=== PATIENT | female | born 1940 | race Caucasian/White ===

== ENCOUNTER 2017-12-01 16:59 | Inpatient (IN) | payer MEDICARE, OTHER, SELFPAY ==
[~2017-12-01] VITALS: Ht 170.2 cm; Wt 76.1 kg
[2017-12-01] MEDS ORDERED: GABA-827 PO (17:33)
[2017-12-01] MEDS ORDERED: PROP10TA PO (17:33)
[2017-12-01] MEDS ORDERED: ROPI0.254 PO (17:33)
[2017-12-01] MEDS ORDERED: METF500T17 PO (17:33)
[2017-12-01] MEDS ORDERED: POTA99TA24 PO (17:33)
[2017-12-01] MEDS ORDERED: FURO20TA3 PO (17:33)
[2017-12-01] MEDS ORDERED: MONT4GRA2 PO (17:33)
[2017-12-01] MEDS ORDERED: OMEP10CA4 PO (17:33)
[2017-12-01] MEDS ORDERED: LISI2.5T PO (17:33)
[2017-12-01] MEDS ORDERED: SIMV5TAB5 PO (17:33)
[2017-12-01] MEDS ORDERED: SODIUM CHLORIDE FLUSH 10ML SYR IVF ONE (18:00)
[2017-12-01 18:24] LABS: BASOPHILS # (AUTO) 0.04 x10^3/uL (0-0.1); BASOPHILS % (AUTO) 1 % (0-1); EOSINOPHILS % (AUTO) 3 % (1-7); LYMPHOCYTES # (AUTO) 1.59 x10^3/uL (1-3.4); LYMPHOCYTES % (AUTO) 20 % (22-44); MD NO; MEAN CORPUSCULAR HEMOGLOBIN 26.3 pg (27.0-34.8); MEAN CORPUSCULAR HGB CONC 32.6 g/dL (32.4-35.8); MEAN CORPUSCULAR VOLUME 80.5 fL (80-100); MEAN PLATELET VOLUME 9.3 fL (7.4-10.4); MONOCYTES # (AUTO) 0.51 x10^3/uL (0.2-0.8); MONOCYTES % (AUTO) 7 % (2-9); NEUTROPHILS # (AUTO) 5.57 x10^3/uL (1.8-6.8); NEUTROPHILS % (AUTO) 70 % (42-75); PLATELET COUNT 216 x10^3/uL (130-400); RED BLOOD COUNT 3.73 x10^6/uL (3.82-5.3); RED CELL DISTRIBUTION WIDTH 15.9 % (9.6-15.2)
[2017-12-01 18:32] LABS: ALBUMIN 3.2 g/dL (3.4-5.0); ANION GAP 7 mmol/L (5-15); CALCIUM 8.8 mg/dL (8.5-10.1); CHLORIDE 103 mmol/L (98-107)
[2017-12-01 18:34] LABS: ALANINE AMINOTRANSFERASE 16 U/L (12-78); CREATININE 0.77 mg/dL (0.55-1.02)
[2017-12-01 18:35] LABS: SALICYLATE LEVEL < 1.7 mg/dL (2.8-20.0)
[2017-12-01 18:39] LABS: ALKALINE PHOSPHATASE 154 U/L (45-117); BILIRUBIN,TOTAL 0.1 mg/dL (0.2-1.0); TOTAL PROTEIN 7.2 g/dL (6.4-8.2); TROPONIN I < 0.015 ng/mL (0.000-0.045)
[2017-12-01 18:40] LABS: ACETAMINOPHEN < 2 mcg/mL (10-30)
[2017-12-01 18:59] LABS: MICROSCOPIC AUTO
[2017-12-01 19:00] LABS: CULTURE INDICATED? YES
[2017-12-01 19:09] LABS: AMPHETAMINE SCREEN, URINE Negative (Negative); BARBITURATE SCREEN, URINE Negative (Negative); BENZODIAZEPINE SCREEN, URINE Negative (Negative); CANNABINOID SCREEN, URINE Negative (Negative); COCAINE SCREEN, URINE Negative (Negative); METHADONE SCREEN, URINE Negative (Negative); OPIATE SCREEN, URINE Negative (Negative)
[2017-12-01] MEDS ORDERED: SODIUM CHLORIDE FLUSH 10ML SYR IVF PRN (20:00)
[2017-12-01 20:34] VITALS: BP 139/81
[2017-12-01 20:35] VITALS: BP 139/81
[2017-12-01] MEDS ORDERED: ASPIRIN 81 MG TABLET CHEW PO ONE (21:30)
[2017-12-01] MEDS ORDERED: BISACODYL 10 MG SUPP PR PRN (21:30)
[2017-12-01] MEDS ORDERED: ACETAMINOPHEN 325 MG TABLET PO PRN (21:30)
[2017-12-01] MEDS ORDERED: POLYETHYLENE GLYCOL 17 GM PACKET PO PRN (21:30)
[2017-12-01] MEDS: SODIUM CHLORIDE FLUSH 10ML SYR IVF SCH (22:26)
[2017-12-01] MEDS: HEPARIN 5,000 UNITS/ML, 1ML SQ SCH (22:26)
[2017-12-01 22:27] LABS: FOLATE LEVEL 7.7 ng/mL (3.1-17.5)
[2017-12-01] MEDS ORDERED: ALBUTEROL SULFATE 2.5 MG/3 ML NPPB PRN (23:00)
[2017-12-01] MEDS: ALBUTEROL SULFATE 2.5 MG/3 ML NPPB SCH (23:08)
[2017-12-02 00:04] VITALS: BP 131/74
[2017-12-02] MEDS ORDERED: MAGNESIUM SULFATE PMX 2GM/50ML 50 ML IV ONE (01:00)
[2017-12-02 04:22] LABS: BASOPHILS # (AUTO) 0.03 x10^3/uL (0-0.1); BASOPHILS % (AUTO) 1 % (0-1); EOSINOPHILS # (AUTO) 0.21 x10^3/uL (0-0.4); EOSINOPHILS % (AUTO) 3 % (1-7); LYMPHOCYTES # (AUTO) 1.53 x10^3/uL (1-3.4); LYMPHOCYTES % (AUTO) 24 % (22-44); MD NO; MEAN CORPUSCULAR HEMOGLOBIN 26.2 pg (27.0-34.8); MEAN CORPUSCULAR HGB CONC 32.8 g/dL (32.4-35.8); MEAN CORPUSCULAR VOLUME 79.9 fL (80-100); MEAN PLATELET VOLUME 9.4 fL (7.4-10.4); MONOCYTES # (AUTO) 0.46 x10^3/uL (0.2-0.8); MONOCYTES % (AUTO) 7 % (2-9); NEUTROPHILS # (AUTO) 4.27 x10^3/uL (1.8-6.8); NEUTROPHILS % (AUTO) 66 % (42-75); PLATELET COUNT 186 x10^3/uL (130-400); RED CELL DISTRIBUTION WIDTH 15.6 % (9.6-15.2)
[2017-12-02 04:30] LABS: ALANINE AMINOTRANSFERASE 15 U/L (12-78); ALBUMIN 2.9 g/dL (3.4-5.0); ANION GAP 5 mmol/L (5-15); CHLORIDE 104 mmol/L (98-107); CREATININE 0.77 mg/dL (0.55-1.02)
[2017-12-02 04:32] LABS: ALKALINE PHOSPHATASE 115 U/L (45-117); BILIRUBIN,TOTAL 0.2 mg/dL (0.2-1.0); TOTAL PROTEIN 6.6 g/dL (6.4-8.2)
[2017-12-02] MEDS: HEPARIN 5,000 UNITS/ML, 1ML SQ SCH ×3 (06:17→20:50)
[2017-12-02 07:31] VITALS: BP 141/69
[2017-12-02] MEDS: SENNA/DOCUSATE TABLET PO SCH (08:55)
[2017-12-02] MEDS: SODIUM CHLORIDE FLUSH 10ML SYR IVF SCH ×2 (08:55→20:49)
[2017-12-02] MEDS: ALBUTEROL SULFATE 2.5 MG/3 ML NPPB SCH ×2 (11:10→18:29)
[2017-12-02] MEDS ORDERED: GABA300C10 PO (11:27)
[2017-12-02] MEDS ORDERED: RIVA1.5C4 PO (11:27)
[2017-12-02] MEDS ORDERED: ROPI1TAB2 PO (11:27)
[2017-12-02] MEDS ORDERED: MONT10TA9 PO (11:27)
[2017-12-02] MEDS ORDERED: LISI-170 PO (11:27)
[2017-12-02] MEDS ORDERED: POTA10TA11 PO (11:27)
[2017-12-02] MEDS: ONDANSETRON ODT 4 MG PO PRN ×2 (11:36→16:08)
[2017-12-02 14:00] VITALS: BP 151/62
[2017-12-02 14:38] LABS: HEMOGLOBIN A1C 6.1 % (4.2-6.3)
[2017-12-02] MEDS ORDERED: POTASSIUM CHLORIDE 10 MEQ TABLET.ER ONE (16:06)
[2017-12-02] MEDS ORDERED: FUROSEMIDE 20 MG TABLET ONE (16:06)
[2017-12-02] MEDS ORDERED: MONTELUKAST 10 MG TABLET ONE (16:06)
[2017-12-02] MEDS ORDERED: OMEPRAZOLE 20 MG CAPSULE.DR ONE (16:06)
[2017-12-02] MEDS ORDERED: LISINOPRIL 20 MG TABLET ONE (16:07)
[2017-12-02] MEDS: MONTELUKAST 10 MG TABLET PO SCH (16:08)
[2017-12-02] MEDS: LISINOPRIL 20 MG TABLET PO SCH (16:09)
[2017-12-02] MEDS: OMEPRAZOLE 20 MG CAPSULE.DR PO SCH (16:10)
[2017-12-02] MEDS: POTASSIUM CHLORIDE 10 MEQ TABLET.ER PO SCH (16:11)
[2017-12-02] MEDS: FUROSEMIDE 20 MG TABLET PO SCH (16:11)
[2017-12-02 18:50] VITALS: BP 138/74
[2017-12-02] MEDS: RIVASTIGMINE 1.5 MG CAPSULE PO SCH (20:49)
[2017-12-02] MEDS: PROPRANOLOL 40 MG TABLET PO SCH (20:50)
[2017-12-02] MEDS: SIMVASTATIN 10 MG TABLET PO SCH (20:50)
[2017-12-02] MEDS: GABAPENTIN 300 MG CAPSULE PO SCH (20:50)
[2017-12-02] MEDS: ROPINIROLE 1MG TABLET PO SCH (20:50)
[2017-12-03 02:12] VITALS: BP 128/72
[2017-12-03] MEDS: HEPARIN 5,000 UNITS/ML, 1ML SQ SCH ×3 (05:59→21:16)
[2017-12-03] MEDS ORDERED: ASPIRIN 325 MG TABLET EC PO SCH (06:00)
[2017-12-03 07:58] VITALS: BP 136/68
[2017-12-03] MEDS: SENNA/DOCUSATE TABLET PO SCH ×2 (09:00→09:17)
[2017-12-03] MEDS: FUROSEMIDE 20 MG TABLET PO SCH (09:00)
[2017-12-03] MEDS: POTASSIUM CHLORIDE 10 MEQ TABLET.ER PO SCH (09:01)
[2017-12-03] MEDS: PROPRANOLOL 40 MG TABLET PO SCH ×2 (09:01→21:12)
[2017-12-03] MEDS: MONTELUKAST 10 MG TABLET PO SCH (09:01)
[2017-12-03] MEDS: OMEPRAZOLE 20 MG CAPSULE.DR PO SCH (09:02)
[2017-12-03] MEDS: LISINOPRIL 20 MG TABLET PO SCH (09:02)
[2017-12-03] MEDS: RIVASTIGMINE 1.5 MG CAPSULE PO SCH ×2 (09:03→21:00)
[2017-12-03] MEDS: SODIUM CHLORIDE FLUSH 10ML SYR IVF SCH ×2 (09:04→21:11)
[2017-12-03] MEDS: ALBUTEROL SULFATE 2.5 MG/3 ML NPPB SCH ×2 (12:26→21:30)
[2017-12-03 13:20] VITALS: BP 131/76
[2017-12-03 18:57] VITALS: BP 115/59
[2017-12-03] MEDS: ROPINIROLE 1MG TABLET PO SCH (21:12)
[2017-12-03] MEDS: GABAPENTIN 300 MG CAPSULE PO SCH (21:13)
[2017-12-03] MEDS: SIMVASTATIN 10 MG TABLET PO SCH (21:13)
[2017-12-04 02:59] VITALS: BP 140/82
[2017-12-04] MEDS: HEPARIN 5,000 UNITS/ML, 1ML SQ SCH ×2 (04:36→12:23)
[2017-12-04 07:31] VITALS: BP 124/66
[2017-12-04] MEDS: SENNA/DOCUSATE TABLET PO SCH (09:00)
[2017-12-04] MEDS: LISINOPRIL 20 MG TABLET PO SCH (09:04)
[2017-12-04] MEDS: POTASSIUM CHLORIDE 10 MEQ TABLET.ER PO SCH (09:04)
[2017-12-04] MEDS: MONTELUKAST 10 MG TABLET PO SCH (09:04)
[2017-12-04] MEDS: FUROSEMIDE 20 MG TABLET PO SCH (09:04)
[2017-12-04] MEDS: OMEPRAZOLE 20 MG CAPSULE.DR PO SCH (09:04)
[2017-12-04] MEDS: ALBUTEROL SULFATE 2.5 MG/3 ML NPPB SCH (09:05)
[2017-12-04] MEDS: PROPRANOLOL 40 MG TABLET PO SCH (09:05)
[2017-12-04] MEDS: RIVASTIGMINE 1.5 MG CAPSULE PO SCH (09:06)
[2017-12-04] MEDS: SODIUM CHLORIDE FLUSH 10ML SYR IVF SCH (09:07)
[2017-12-04 12:31] VITALS: BP 128/62
== END 2017-12-04 16:30 | disposition home health service (06) | DRG 71 ==
LOC: ED 18:11 → EDIP 19:38 → 4WST 20:26 → DCLOUNGE 12-04 16:23
PROVIDERS: ADMIT Hospitalist; ATTEND Hospitalist
DX: G93.41 Metabolic encephalopathy (principal); D68.69 Other thrombophilia; E44.1 Mild protein-calorie malnutrition; I47.2 Ventricular tachycardia; J96.10 Chronic respiratory failure, unspecified whether with hypoxia or hypercapnia; E83.42 Hypomagnesemia; D63.8 Anemia in other chronic diseases classified elsewhere; E11.9 Type 2 diabetes mellitus without complications; E78.5 Hyperlipidemia, unspecified; I10 Essential (primary) hypertension; I48.2 Chronic atrial fibrillation; J44.9 Chronic obstructive pulmonary disease, unspecified; R62.7 Adult failure to thrive; Z79.84 Long term (current) use of oral hypoglycemic drugs; Z80.9 Family history of malignant neoplasm, unspecified; Z82.49 Family history of ischemic heart disease and other diseases of the circulatory system; Z86.73 Personal history of transient ischemic attack (TIA), and cerebral infarction without residual deficits; Z87.891 Personal history of nicotine dependence; Z90.710 Acquired absence of both cervix and uterus; Z99.81 Dependence on supplemental oxygen; Z88.2 Allergy status to sulfonamides; Z68.26 Body mass index [BMI] 26.0-26.9, adult; R11.2 Nausea with vomiting, unspecified
CPT/HCPCS: 36415; 70450; 70551; 71045; 80053; 80307; 80329; 81001; 82607; 82746; 83036; 83735; 84443; 84484; 85025; 87086; 93005; 93306; 94640; 99285; G0378; J1644; J7613; Q0162; G0480; J3475